=== PATIENT | female | born 1975 | race Caucasian/White ===

== ENCOUNTER 2018-11-11 23:14 | Emergency (ER) | payer OTHER ==
[2018-11-12] MEDS ORDERED: KETOROLAC 30 MG/ML INJ ONE (00:59)
--- NOTE | 2018-11-12 01:18 | EDPHYS ---
Physician Documentation [facility] Name: Karen Stanley Age: 43 yrs Sex: Female : 1975 Arrival Date: 11/11/2018 Time: 23:17 Bed 19 Private MD: ED Physician Helder Little HPI: 11/12 06:11 This 43 yrs old Female presents to ER via Ambulatory with complaints of tw4 Headache, Swollen Glands, Neck Pain, <24hrs Old. 06:11 The patient or guardian complains of pain, that is acute. The symptoms are located on tw4 the left jaw and left mandible. Onset: The symptoms/episode began/occurred 3 day(s) ago. Context: [place] the [place] outdoors, The neck injury/problem resulted from from unknown cause. Associated signs and symptoms: Pertinent positives: headache. The pain does not radiate. Modifying factors: The symptoms are alleviated by remaining still, the symptoms are aggravated by movement. Severity of symptoms: At their worst the symptoms were moderate, in the emergency department the symptoms are unchanged. The patient has not experienced similar symptoms in the past. 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 - Social history:: Smoking status: Patient/guardian denies using tobacco, the patient reports quitting approximately 9 years ago. - Ebola Screening: : No symptoms or risks identified at this time. ROS: 11/12 06:11 Constitutional: Negative for fever, chills, and weight loss, Eyes: Negative for injury, tw4 pain, redness, and discharge. Cardiovascular: Negative for chest pain, palpitations, and edema, Respiratory: Negative for shortness of breath, cough, wheezing, and pleuritic chest pain, Abdomen/GI: Negative for abdominal pain, nausea, vomiting, diarrhea, and constipation, Back: Negative for injury and pain, MS/Extremity: Negative for injury and deformity, Skin: Negative for injury, rash, and discoloration, Neuro: Negative for headache, weakness, numbness, tingling, and seizure. Neck: Positive for injury or acute deformity, pain with movement, pain at rest, stiffness, tenderness, Negative for mass. Exam: 06:11 Constitutional: This is a well developed, well nourished patient who is awake, alert, tw4 and in no acute distress. Head/Face: Normocephalic, atraumatic. Eyes: Pupils equal round and reactive to light, extra-ocular motions intact. Lids and lashes normal. Conjunctiva and sclera are non-icteric and not injected. Cornea within normal limits. Periorbital areas with no swelling, redness, or edema. Cardiovascular: Regular rate and rhythm with a normal S1 and S2. No gallops, murmurs, or rubs. Normal PMI, no JVD. No pulse deficits. Respiratory: Lungs have equal breath sounds bilaterally, clear to auscultation and percussion. No rales, rhonchi or wheezes noted. No increased work of breathing, no retractions or nasal flaring. Abdomen/GI: Soft, non-tender, with normal bowel sounds. No distension or tympany. No guarding or rebound. No evidence of tenderness throughout. Back: No spinal tenderness. No costovertebral tenderness. Full range of motion. MS/ Extremity: Pulses equal, no cyanosis. Neurovascular intact. Full, normal range of motion. Neuro: Awake and alert, GCS 15, oriented to person, place, time, and situation. Cranial nerves II-XII grossly intact. Motor strength 5/5 in all extremities. Sensory grossly intact. Cerebellar exam normal. Normal gait. 06:11 Neck: External neck: tenderness, that is moderate, C-spine: Lymph nodes: lymphadenopathy is appreciated, anterior cervical nodes. Vital Signs: 11/11 23:45 BP 130 / 89; Pulse 77; Resp 17 S; Temp 98.6(O); Pulse Ox 100% on R/A; Weight 85.28 kg cc3 (R); Height 5 ft. 8 in. (172.72 cm) (R); Pain 5/10; 11/12 00:30 BP 105 / 81; Pulse 78; Resp 18 S; Pulse Ox 100% on R/A; cc3 01:15 BP 112 / 75; Pulse 63; Resp 16 S; Pulse Ox 100% on R/A; cc3 11/11 23:45 Body Mass Index 28.59 (85.28 kg, 172.72 cm) cc3 MDM: 11/11 23:42 Patient medically screened. tw4 11/12 06:21 Data reviewed: vital signs, nurses notes. Data interpreted: Pulse oximetry: is not tw4 applicable for this patient encounter. Counseling: I had a detailed discussion with the patient and/or guardian regarding: the historical points, exam findings, and any diagnostic results supporting the discharge/admit diagnosis, lab results. Special discussion: I discussed with the patient/guardian in detail that at this point there is no indication for admission to the hospital. It is understood, however, that if the symptoms persist or worsen the patient needs to return immediately for re-evaluation. 11/12 00:35 Order name: Rapid Strep; Complete Time: 01:14 tw4 11/12 01:02 Order name: Throat Culture EDMS Administered Medications: 00:45 Drug: TORadol 60 mg Route: IM; Site: left gluteus; cc3 01:30 Follow up: Response: No adverse reaction; Pain is decreased cc3 Disposition: 11/12/18 01:17 Discharged to Home. Impression: Pharyngitis. - Condition is Stable. - Discharge Instructions: Pharyngitis, Cervical Sprain. - Prescriptions for Ibuprofen 800 mg Oral Tablet - take 1 tablet by ORAL route every 8 hours As needed take with food; 30 tablet. - Medication Reconciliation Form, Thank You Letter, Antibiotic Education, Prescription Opioid Use form. - Follow up: Private Physician; When: Upon discharge from the Emergency Department; Reason: If symptoms return, Recheck today's complaints, Continuance of care. - Problem is new. - Symptoms have improved. Signatures: [facility] Helder Little MD MD tw4 Lennie Marques cc3 Corrections: (The following items were deleted from the chart) 01:36 01:17 11/12/2018 01:17 Discharged to Home. Impression: Pharyngitis. Condition is cc3 Stable. Forms are Medication Reconciliation Form, Thank You Letter, Antibiotic Education, Prescription Opioid Use. Follow up: Private Physician; When: Upon discharge from the Emergency Department; Reason: If symptoms return, Recheck today's complaints, Continuance of care. Problem is new. Symptoms have improved. tw4
--- NOTE | 2018-11-12 01:18 | ER ---
Nurse's Notes [facility] Name: Karen Stanley Age: 43 yrs Sex: Female : 1975 Arrival Date: 11/11/2018 Time: 23:17 Bed 19 Private MD: Diagnosis: Pharyngitis Presentation: 11/11 23:45 Presenting complaint: Patient states: "Left sided neck pain since Saturday after swimming cc3 in the beach. I can feel some lymph nodes when I touch it. Been having a headache today as well". Transition of care: patient was not received from another setting of care. Onset of symptoms was November 09, 2018. Risk Assessment: Do you want to hurt yourself or someone else? Patient reports no desire to harm self or others. Initial Sepsis Screen: Does the patient meet any 2 criteria? No. Patient's initial sepsis screen is negative. Does the patient have a suspected source of infection? No. Patient's initial sepsis screen is negative. Care prior to arrival: Medication(s) given: Tylenol, 1 tab taken at home at 2000H. 23:45 Method Of Arrival: Ambulatory cc3 23:45 Acuity: TONIA 4 cc3 Triage Assessment: 23:45 Headache History: The patient has had previous headaches and this one is more severe cc3 than previous episodes. General: Appears in no apparent distress. uncomfortable, Behavior is calm, cooperative, appropriate for age. Pain: Complains of pain in left side of neck, head Pain currently is 5 out of 10 on a pain scale. Pain began 2-3 days ago. Also complains of no other associated symptoms. EENT: Reports pain in left side of neck. Neuro: Level of Consciousness is awake, alert, obeys commands, Oriented to person, place, time, situation, Appropriate for age. Cardiovascular: Denies chest pain, Capillary refill < 3 seconds Patient's skin is warm and dry. Respiratory: Airway is patent Respiratory effort is even, unlabored, Respiratory pattern is regular, symmetrical. GI: Abdomen is round non-distended. : No signs and/or symptoms were reported regarding the genitourinary system. Derm: Skin is intact, is healthy with good turgor, Skin is pink, warm \\T\\ dry. normal. Musculoskeletal: Circulation, motion, and sensation intact. Range of motion: intact in all extremities. 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 - Social history:: Smoking status: Patient/guardian denies using tobacco, the patient reports quitting approximately 9 years ago. - Ebola Screening: : No symptoms or risks identified at this time. Screenin:45 Abuse screen: Denies threats or abuse. Denies injuries from another. Nutritional cc3 screening: No deficits noted. Tuberculosis screening: No symptoms or risk factors identified. Fall Risk Ambulatory Aid- None/Bed Rest/Nurse Assist (0 pts). Gait- Normal/Bed Rest/Wheelchair (0 pts) Mental Status- Oriented to own ability (0 pts). Assessment: 23:45 General: see triage assessment. 3 11/12 00:25 Reassessment: Patient appears in no apparent distress at this time. Patient and/or cc3 family updated on plan of care and expected duration. Pain level reassessed. Patient is alert, oriented x 3, equal unlabored respirations, skin warm/dry/pink. Dr. Little at bedside assessing the patient. 01:30 Reassessment: Patient appears in no apparent distress at this time. Patient and/or cc3 family updated on plan of care and expected duration. Pain level reassessed. Patient is alert, oriented x 3, equal unlabored respirations, skin warm/dry/pink. Dr. Little discharged home the patient with prescription given. No IV cannula in situ. Patient left ER vitally stable and ambulatory. No valuables left in the patient's room. Patient states feeling better. Patient states symptoms have improved. Vital Signs: 11/11 23:45 BP 130 / 89; Pulse 77; Resp 17 S; Temp 98.6(O); Pulse Ox 100% on R/A; Weight 85.28 kg cc3 (R); Height 5 ft. 8 in. (172.72 cm) (R); Pain 5/10; 11/12 00:30 BP 105 / 81; Pulse 78; Resp 18 S; Pulse Ox 100% on R/A; cc3 01:15 BP 112 / 75; Pulse 63; Resp 16 S; Pulse Ox 100% on R/A; cc3 11/11 23:45 Body Mass Index 28.59 (85.28 kg, 172.72 cm) cc3 ED Course: 11/11 23:17 Patient arrived in ED. teodoro 23:42 Helder Little MD is Attending Physician. tw4 23:45 Patient has correct armband on for positive identification. Bed in low position. Call cc3 light in reach. Side rails up X 1. Pulse ox on. NIBP on. 23:45 Arm band placed on right wrist. Patient notified of wait time. cc3 23:49 Lennie Marques is Primary Nurse. cc3 23:54 Triage completed. cc3 11/12 01:30 No provider procedures requiring assistance completed. Patient did not have IV access cc3 during this emergency room visit. Administered Medications: 00:45 Drug: TORadol 60 mg Route: IM; Site: left gluteus; cc3 01:30 Follow up: Response: No adverse reaction; Pain is decreased cc3 Outcome: 01:17 Discharge ordered by . tw4 01:30 Discharged to home ambulatory. cc3 01:30 Condition: stable 01:30 Discharge instructions given to patient, Instructed on discharge instructions, follow up and referral plans. medication usage, Demonstrated understanding of instructions, follow-up care, medications, Prescriptions given X 1. 01:36 Patient left the ED. cc3 Signatures: Keisha Arcos Terrence, MD MD tw4 Lennie Marques cc3 Corrections: (The following items were deleted from the chart) 02:07 00:25 Reassessment: Patient appears in no apparent distress at this time. Patient cc3 and/or family updated on plan of care and expected duration. Pain level reassessed. Patient is alert, oriented x 3, equal unlabored respirations, skin warm/dry/pink. cc3
== END 2018-11-12 01:36 | disposition home or self-care (01) ==
LOC: ER 23:14
DX: J02.9 Acute pharyngitis, unspecified (principal); Z88.5 Allergy status to narcotic agent; Z87.891 Personal history of nicotine dependence
CPT/HCPCS: 87070; 87081